=== PATIENT | female | born 1970 | race Caucasian/White ===

== ENCOUNTER → 2017-04-16 | Outpatient (CLI) | payer OTHER ==
[~2017-04-16] MED LIST: ASPIRIN ENTERI325 M1 PO; ATIVAN0.5 M1 PO; BACTRIM 400-801 TA1 PO; BUSPAR PO; BUSPAR30 MG PO; COMPAZINE10 M1 PO; COMPAZINE10 MG PO; CYANOCOBAL1000 MCG/M IM; CYMBALTA PO; CYMBALTA30 MG PO; DESYREL300 MG PO; DIAZEPAM PO; DICLOFENAC PO; DOCU SOFT100 M1 PO; DULOXETINE HCL60 MG PO; FENTANYL1 EAC3 TD; FIORINAL 50-321 EACH PO; FLAGYL PO; FLEXERIL10 MG PO; GABAPENTIN800 MG PO; HYDROCODON-ACE1 EAC7 PO; HYDROXYZINE HCL50 MG PO; IMITREX PO; IRON325 ( 652 PO; KLONOPIN1 MG PO; LIPITOR20 MG PO; LORTAB 10-3251 EACH PO; LORTAB 5/500 TA1 TA1 PO; LORTAB 7.5-5001 TAB PO; MOBIC PO; NEURONTIN800 MG PO; OXYCODONE HCL5 MG PO; PERCOCET10 PO; PHENERGAN PO; PRILOSEC PO; PROTONIX PO; TRAZODONE HCL100 MG PO; TRAZODONE HCL150 MG PO; TRAZODONE HCL300 MG PO; TRAZODONE PO; ULTRAM; ULTRAM PO; ZOFRAN ODT4 MG PO; ZOFRAN PO
--- NOTE | ~2017-04-16 | MR113 ---
[facility] A Service of [facility] RADIOLOGY TEXT RESULTS PATIENT: ÁGNEL HICKMAN LOCATION: [facility] : 74 UNIT #: [id number] AGE: [address]: Alton Dotson MD SEX: F ORDER DR: [id number] [facility] [address] [place], [place] [address] [id number] MR#: [id number] Acc #: [id number] NAME: ÁNGEL HICKMAN : 1970 SEX: F STUDY DATE/TIME: 04/16/2017 16:59 UNIT: CMRI ROOM: STUDY DESCRIPTION: MR Lumbar Wo Contrast Attending Physician: Alton Dotson M.D. Referring Physician: Alton Dotson M.D. Ordering Physician: Alton Dotson M.D. Primary Care Physician: Marylou Lewis M.D. MRI CENTER REPORT This report is preliminary unless electronic signature is present. EXAM Lumbar spine MRI. HISTORY Low back pain that radiates to the right leg for the past 5 years. Lumbar surgery 6 weeks ago. Right leg pain has worsened since surgery, accompanied by right leg numbness. TECHNIQUE Multiplanar imaging of the lumbar spine was performed and compared to a previous scan from 10/24/16. FINDINGS The upper 4 lumbar discs are unremarkable and unchanged from the preoperative examination. There is no evidence of new disc herniation or exiting nerve root compression. Postoperative changes of fusion are seen across L5-S1. Expected postoperative granulation tissue is seen at the operative site. No postoperative fluid collections are noted. The spinal canal and foramina at L5-S1 appear to be patent. There is no evidence of epidural hematoma. The conus is normal. Nerve roots of the cauda quinine have a normal branching pattern. No paraspinous masses are seen. IMPRESSION Satisfactory postop appearance across an L5-S1 fusion. No postoperative complications are seen. Dictated by... Woo Kurtz M.D. THIS IS AN ELECTRONICALLY VERIFIED REPORT [facility] A Service of [facility] RADIOLOGY TEXT RESULTS PATIENT: ÁNGEL HICKMAN [facility] : 72 UNIT #: [id number] AGE: [address]: Alton Dotson MD SEX: F ORDER DR: Woo Kurtz M.D. at 04/17/2017 6:27 PM OSVALDO/jono TD: 04/17/2017 15:25 JOB #: [id number] MRI CENTER REPORT Page 1 of 1 COPY
== END | disposition home or self-care (01) ==
LOC: CMRI 16:36
DX: G89.18 Other acute postprocedural pain (principal); Z98.1 Arthrodesis status
CPT/HCPCS: 72148

== ENCOUNTER 2017-07-21 21:57 | Observation (INO) | payer OTHER ==
[~2017-07-21] VITALS: Ht 165.1 cm; Wt 90.7 kg
--- NOTE | ~2017-07-21 | DS ---
Unit #: [id number] #: [id number] Patient: ÁNGEL HICKMAN [id number] [address] [place], [place] [address] [id number] I MR#: [id number] NAME: ÁNGEL HICKMAN. ROOM: 217 Age: 47 Sex: F Admission Date: 07/22/2017 : 1970 Discharge Date: 07/23/2017 Attending Physician: Raquel Garcia M.D. Primary Care Physician: Marylou Lewis M.D. DISCHARGE SUMMARY REASON FOR ADMISSION Left flank/left-sided abdominal pain. HISTORY OF PRESENT ILLNESS/HOSPITAL COURSE The patient is a very pleasant 47-year-old female, with a long history of chronic back pain, depression, generalized anxiety disorder, presented secondary to left lower quadrant discomfort and/or pain. Please refer to history and physical for complete details. She underwent a CT of the abdomen and pelvis without contrast on July 22, 2017 which was unremarkable. Initial blood work including urinalysis was negative. CBC showed a white count of 9.2, hemoglobin 13.8. Secondary to increased discomfort, consultation was placed to [facility] for evaluation. The patient underwent upper and lower endoscopy by Dr. Carbajal. Preliminary results are negative within normal range. There were no acute findings which were noted. From their standpoint, the patient was clear to discharged home. The patient will be discharged with the understanding that she will follow up with her primary care physician within 7 to 10 days, seems likely that she has some level of irritable bowel syndrome secondary to underlying generalized anxiety and/or psychiatric illness. Recommendation has been made for outpatient GI evaluation and/or consideration made to psychiatric referral as an outpatient. Plans have been reviewed in detail. She will followup with primary care physician in 7 days. FINAL DISCHARGE DIAGNOSES 1. Left-sided abdominal pain, negative workup. 2. History of major depressive disorder. 3. Generalized anxiety disorder. 4. Chronic low back pain, status post fusion February 2017. 5. Obesity. FINAL DISCHARGE MEDICATIONS 1. Neurontin 800 mg p.o. q.6 2. Cymbalta 120 mg p.o. q.h.s. 3. Trazodone 300 mg p.o. q.h.s. 4. Imitrex 100 mg p.o. daily p.r.n. migraine 5. Percocet 10/325 one tablet p.o. q.8 p.r.n. 6. Omeprazole 20 mg p.o. daily 7. Flexeril 10 mg p.o. q.8 p.r.n. 8. Vitamin B12 IM injections monthly Unit #: [id number] #: [id number] Patient: ÁNGEL HICKMAN DISCHARGE CONDITION Stable. DISCHARGE DISPOSITION Home. Dictated by... Brittanie Winston/jose TD: 07/24/2017 06:05 JOB #: [id number] DISCHARGE SUMMARY Page 1 of 1 X Raquel Garcia MD X DISCHARGE SUMMARY
--- NOTE | ~2017-07-21 | OR ---
Unit #: [id number] #: [id number] Patient: ÁNGEL HICKMAN [id number] [address] [place], [place] [address] [id number] I MR#: [id number] NAME: ÁNGEL HICKMAN. ROOM: [facility] Date of Procedure: 07/23/2017 Admission Date: 07/22/2017 Surgeon: Kasi Carbajal M.D. : 1970 Attending Physician: Raquel Garcia M.D. Primary Care Physician: Marylou Lewis M.D. OPERATIVE REPORT JOB NOTE: VERIFY MRN NUMBER. PREOPERATIVE DIAGNOSES 1. Diarrhea. 2. Left-sided abdominal pain. 3. Dark stools. POSTOPERATIVE DIAGNOSES 1. Diarrhea. 2. Left-sided abdominal pain. 3. Dark stools. PROCEDURES PERFORMED 1. Esophagogastroduodenoscopy. 2. Biopsy of antrum for Helicobacter pylori testing. 3. Colonoscopy to cecum. ANESTHESIA Monitored anesthesia care. FINDINGS The patient was found on upper endoscopy to have retained food, otherwise normal upper endoscopy. The patient had normal colonoscopy to cecum. SPECIMENS Sent to pathology. COMPLICATIONS None apparent. CONDITION The patient tolerated the procedure well. INDICATIONS FOR PROCEDURE The patient is a 47-year-old female, who presents at this time with left-sided abdominal pain. Her CT scan of the abdomen and pelvis revealed no acute findings in the abdomen or pelvis. She presents at this time for upper and lower endoscopy. DESCRIPTION OF PROCEDURE After obtaining informed consent, the patient was brought to the endoscopy suite and after adequate monitored anesthesia care was obtained, had the Unit #: [id number] #: [id number] Patient: ÁNGEL HICKMAN endoscope placed through the mouth into the upper esophagus under direct vision. It was advanced to the second and third portion of the duodenum without difficulty with the lumen always in view. The duodenum was within normal limits as was the duodenal bulb. The pylorus opened normally. There was some very mild gastritis present distally in the antrum and a biopsy was obtained for Helicobacter pylori testing. On retroflexing back to the GE junction, the patient had a moderate amount of retained food in the stomach. No other abnormalities were found in the proximal third, middle third, or incisura. On pulling back above the GE junction, there was no stenosis, stricture, or neoplasm seen. There was no significant esophagitis. The remaining portion esophagus was within normal limits. Laryngeal structures were grossly normal as viewed from above. At this point in time, the colonoscope was placed through the anus and slowly advanced to the level of the cecum without difficulty with the lumen always in view. The cecum was normal as was the ileocecal valve. The ascending colon was normal as was the hepatic flexure, transverse colon, splenic flexure, descending colon, sigmoid colon, and rectum. No diverticula were seen. No inflammatory changes were seen. On retroflexing in the rectum to the anorectal junction, there was no abnormality seen. The scope was removed without difficulty. The patient tolerated the procedure well went from the endoscopy suite to recovery area in stable condition. RECOMMENDATIONS Resume preop orders and medications. Clear liquid diet, advance as tolerated. The patient may need a gastric emptying scan as an inpatient or outpatient per the hospitalist opinion. Dictated by... Brittanie Dominique/jerrica TD: 07/24/2017 03:35 JOB #: [id number] [facility] OPERATIVE REPORT Page 1 of 1 X Kasi Carbajal MD X PROCEDURE OPERATIVE NOTE
--- NOTE | ~2017-07-21 | CT4 ---
[facility] A Service of [facility] RADIOLOGY TEXT RESULTS PATIENT: ÁNGEL HICKMAN LOCATION: [place] [address] : 74 UNIT #: [id number] AGE: [address]: Raquel Garcia MD SEX: F ORDER DR: [id number] [facility] [address]. [place], [place] [address] [id number] I MR#: [id number] Acc #: [id number] NAME: ÁNGEL HICKMAN. : 1970 SEX: F STUDY DATE/TIME: 07/22/2017 0:57 UNIT: CEDOF ROOM: 68[address] STUDY DESCRIPTION: CT Abd and Pelv Wo Cont Attending Physician: Raquel Garcia M.D. Ordering Physician: Laci Bowen M.D. Primary Care Physician: Marylou Lewis M.D. MEDICAL IMAGING REPORT This report is preliminary unless electronic signature is present EXAM CT abdomen and pelvis without contrast HISTORY Left side abdomen pain for 1 day. Low back pain. Nausea and vomiting. FINDINGS CT abdomen and pelvis was performed without contrast. This CT exam was performed with one or more of the following radiation dose reduction techniques: Automatic exposure control, adjustment of mA and/or kV according to patient size, and iterative reconstruction. CT ABDOMEN: There is a 7 mm lipoma in the pancreatic tail. This is stable compared to CT 07/25/2015. Cholecystectomy. The liver, spleen, left kidney, and adrenal glands are normal. 5 mm stone in the lower pole of the right kidney. No perinephric stranding. No bowel dilatation. Normal caliber abdominal aorta. CT PELVIS: Appendectomy and hysterectomy. No free fluid. No inflammatory stranding. Urinary bladder is normal. Fusion across L5-S1. IMPRESSION 1. No acute findings in the abdomen or pelvis. 2. No urinary calculi or obstruction. 3. Cholecystectomy, appendectomy and hysterectomy. 4. Small nonobstructing stone in the lower-pole right kidney. 5. 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 Dictated by... Alfonzo Lopez M.D. [facility] A Service of [facility] RADIOLOGY TEXT RESULTS PATIENT: ÁNGEL HICKMAN LOCATION: [place] [address] : [birth year] UNIT #: [id number] AGE: [address]: Raquel Garcia MD SEX: F ORDER DR: THIS IS AN ELECTRONICALLY VERIFIED REPORT Alfonzo Lopez M.D. at 07/23/2017 4:16 AM DFL/chasidy TD: 07/22/2017 09:02 JOB #: [id number] MEDICAL IMAGING REPORT Page 1 of 1 COPY
--- NOTE | ~2017-07-21 | CO ---
Unit #: [id number] #: [id number] Patient: ÁNGEL HICKMAN [id number] [address] [place], [place] [address] [id number] I MR#: [id number] NAME: ÁNGEL HICKMAN. ROOM: 217 Age: 47 Sex: F Admission Date: 07/22/2017 : 1970 Attending Physician: Raquel Garcia M.D. Primary Care Physician: Marylou Lewis M.D. Consultation Date: 07/22/2017 CONSULTATION REPORT BRIEF HISTORY The patient is a 47-year-old lady with a 2-day history of left flank and left lower quadrant abdominal pain. Described as crampy radiating to her back. She has had some nausea, vomiting, or diarrhea. No blood per rectum. No hematemesis. No fevers or chills. No history of recent similar type pain. PAST MEDICAL HISTORY She has a history of cardiac dysfunction, congestive heart failure, hypertension, musculoskeletal difficulties, history of renal failure. PAST SURGICAL HISTORY She has had a hysterectomy, appendectomy, cholecystectomy, and biliary stent. HOME MEDICATIONS Cymbalta, Percocet, gabapentin. SOCIAL HISTORY Does drink routinely. No smoking. FAMILY HISTORY Negative for GI malignancy. REVIEW OF SYSTEMS No cardiopulmonary complaints at this time. Else, 10 systems reviewed negative physical. PHYSICAL EXAMINATION GENERAL: She is awake, alert, appropriate, currently afebrile. HEENT: Unremarkable. NECK: Supple. No JVD. Trachea midline. LUNGS: Clear to auscultation. Bilateral breath sounds symmetric. CARDIOVASCULAR: Regular rate and rhythm. ABDOMEN: Soft. It is mildly tender in the left lower quadrant. No rebound. No masses. No hernias. EXTREMITIES: No clubbing, cyanosis, or edema. DIAGNOSTIC STUDIES LABORATORY RESULTS: Show a normal white count. Chemistries are normal. CT scan is normal. ASSESSMENT Abdominal pain, possible diverticulitis versus colitis. Unit #: [id number] #: [id number] Patient: ÁNGEL HICKMAN PLAN Recommend IV fluids, antibiotics, bowel rest and would consider upper and lower endoscopy. Dictated by... Urban Melchor M.D. LUBA/jerrica TD: 07/22/2017 17:25 JOB #: [id number] CONSULTATION REPORT Page 1 of 1 X Urban Melchor MD CONSULTATION REPORT
--- NOTE | ~2017-07-21 | HP ---
Unit #: [id number] #: [id number] Patient: ÁNGEL HICKMAN [id number] [address] [place], [place] [address] [id number] I MR#: [id number] NAME: ÁNGEL HICKMAN. ROOM: 12434 Age: 47 Sex: F Admission Date: 07/22/2017 : 1970 Attending Physician: Christel Jha M.D. Primary Care Physician: Marylou Lewis M.D. HISTORY AND PHYSICAL CHIEF COMPLAINT Left flank/left sided abdominal pain. HISTORY This 47-year-old female with chronic low back pain, depression, is admitted for left sided abdominal pain. The patient states that she has had some recent non-bloody diarrhea. Two days ago, she began to experience left flank to left sided abdominal discomfort associated with nonbloody nausea and vomiting. Also noted fatigue. States that recently she noted a little bit of blood in her urine as well. She presented to this emergency department late last evening in quite a bit of discomfort. She was treated with Toradol, Zofran and ultimately given a milligram of Dilaudid for severe pain. Workup including urinalysis, CT scan and labs were fairly unremarkable. On examination, she does have left flank percussion tenderness, and tenderness when palpating left mid abdomen but also left upper quadrant and left lower quadrant. PAST MEDICAL HISTORY 1. Hyperlipidemia. 2. Anxiety, depression and insomnia. 3. Chronic back pain, status post lumbar fusion 02/2017. 4. Cardiac catheterization. 5. Right upper quadrant pain. 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 A stent was placed for about six weeks. She had a sphincterotomy done. She was noted to have moderate gastritis as well. 6. Previous colonoscopy with two ascending colon ulcers noted. 7. Cholecystectomy. 8. Bladder repair. 9. Hysterectomy and unilateral oophorectomy. 10. Lumbar fusion. ALLERGIES Latex. HOME MEDICATIONS 1. Cymbalta 120 mg q. h.s. 2. Trazodone 300 mg q. h.s. 3. Neurontin 800 mg q.i.d. 4. Percocet 10/325 t.i.d. as needed. 5. Flexeril 10 mg t.i.d. as needed. 6. Prilosec 20 mg daily. Unit #: [id number] #: [id number] Patient: ÁNGEL HICKMAN FAMILY HISTORY Alcohol-induced cirrhosis, CAD. SOCIAL HISTORY The patient lives with her . Stopped smoking about six months ago. Occasionally drinks alcohol. REVIEW OF SYSTEMS Notable for left back, left abdominal pain, nausea, vomiting recently, mild diarrhea, gastritis, hyperlipidemia, anxiety, depression, insomnia, chronic back pain, above mentioned surgeries, gastritis. All other systems were reviewed and otherwise negative. PHYSICAL EXAMINATION GENERAL: Pleasant, moderately obese 47-year-old female, currently in no acute distress. VITAL SIGNS: Temperature 97.8, pulse 86, respirations 15, blood pressure 125/83. O2 saturation is 100% on room air. HEENT: Eyes PERRLA. Extraocular muscles are intact. Pharynx is benign. NECK: Supple without adenopathy or thyromegaly. CHEST: Clear. BACK: With left percussion CVA tenderness. ABDOMEN: Bowel sounds are present. Patient is tender left side of the abdomen without rebound or definite guarding. No hepatosplenomegaly or masses. EXTREMITIES: Without C, C or E. Pedal pulses are present. NEUROLOGIC EXAM: Patient is awake, alert, oriented. Cranial nerves are intact. Equal strength throughout. DIAGNOSTIC STUDIES LABORATORY: Admission labs - hematocrit is 40.4. Normal white count, platelet count. SMA-12 - amylase and lipase are all normal. Urinalysis is negative. IMAGING: CT scan of the abdomen and pelvis - 7 mm lipoma in the pancreatic tail, nonobstructive right renal calculi. ASSESSMENT 1. Left flank/left sided abdominal pain with negative workup. Patient did make mention of some recent hematuria which I neglected to dictate in my H and P. However, urinalysis is negative, and there is no ureteral stone noted on CT scan. 2. Chronic low back pain, status post fusion 02/2017. 3. Depression/anxiety and insomnia. 4. History of gastritis. PLANS 1. IV fluids and supportive treatment. 2. Repeat urinalysis this morning and CBC this morning. 3. [facility] to see. 4. SCDs for DVT prophylaxis. 5. Stool cultures if diarrhea occurs. Unit #: [id number] #: [id number] Patient: ÁNGEL HICKMAN Dictated by Brittanie Ramirez/edward TD: 07/22/2017 05:52 JOB #: [id number] HISTORY AND PHYSICAL Page 1 of 1 X Christel Jha MD HISTORY AND PHYSICAL
[~2017-07-21 21:57] MED LIST changes: -CYANOCOBAL1000 MCG/M IM; -DULOXETINE HCL60 MG PO; -FLEXERIL10 MG PO; -GABAPENTIN800 MG PO; -IMITREX PO; -PERCOCET10 PO; -PRILOSEC PO
[2017-07-22 00:35] LABS: BASOPHIL# 0.1 X10e3 (0-0.3); BASOPHIL% 0.6 % (0-2.5); EOSINOPHIL# 0.3 X10e3 (0-0.7); EOSINOPHIL% 3.4 % (0.0-7.0); HEMATOCRIT 40.4 % (35.0-45.0); HEMOGLOBIN 13.8 gm/dL (12.0-16.0); LYMPHOCYTE# 3.5 X10e3 (1.0-3.5); LYMPHOCYTE% 38.2 % (17.0-45.0); MEAN CELL VOLUME 92.8 FL (83-96); MEAN CORPUSCULAR HEMOGLOBIN 31.8 PG (28-34); MEAN CORPUSCULAR HGB CONC 34.3 g/dL (30-36); MEAN PLATELET VOLUME 8.3 FL (6.5-11.5); MONOCYTE# 0.7 X10e3 (0-1.0); MONOCYTE% 7.7 % (3.0-12.0); NEUTROPHIL# 4.6 X10e3 (1.5-7.1); NEUTROPHIL% 50.1 % (40-75); PLATELET COUNT 240 X10e3 (140-420); RED BLOOD COUNT 4.35 X10e (3.90-5.30); RED CELL DISTRIBUTION WIDTH 13.5 % (11.0-15.5); WHITE BLOOD COUNT 9.2 X10e3 (4.0-10.5)
[2017-07-22 00:35] LABS: URINE SOURCE CLEAN CATCH
[2017-07-22 00:36] LABS: DIFF IND NO
[2017-07-22 00:40] LABS: URINE APPEARANCE CLEAR; URINE BILIRUBIN NEG (NEG); URINE BLOOD NEG (NEG); URINE COLOR YELLOW; URINE GLUCOSE NEG (NEG); URINE KETONE NEG (NEG); URINE LEUKOCYTE ESTERASE NEG (NEG); URINE NITRATE NEG (NEG); URINE PROTEIN NEG (NEG); URINE SPECIFIC GRAVITY 1.017 (1.003-1.035); URINE UROBILINOGEN 0.2 MG/DL (NEG)
[2017-07-22 00:42] LABS: CULTURE INDICATED? NO
[2017-07-22 01:01] LABS: ALBUMIN SERUM 4.3 g/dL (3.5-5.0); ALKALINE PHOSPHATASE 92 U/L (32-92); ALT (SGPT) 22 U/L (10-40); AMYLASE 26 U/L (0-46); AST (SGOT) 25 U/L (10-42); BILIRUBIN,TOTAL 0.5 mg/dL (0.2-2.0); BLOOD UREA NITROGEN 15 mg/dL (9-23); CALCIUM SERUM 9.7 mg/dL (8.4-10.2); CARBON DIOXIDE 23 mmol/L (22-31); CHLORIDE 104 mmol/L (100-111); GLUCOSE FASTING 89 mg/dL (70-110); LIPASE 29 U/L (22-51); PROTEIN TOTAL SERUM 7.7 g/dL (6.0-8.3); SODIUM 138 mmol/L (135-145)
[2017-07-22 01:29] LABS: BILIRUBIN, DIRECT <0.1 mg/dL (0.0-0.2); BILIRUBIN,INDIRECT 0.4 mg/dL (0.0-0.9)
[2017-07-22] MEDS ORDERED: DULOXETINE HCL60 MG PO (02:18)
[2017-07-22] MEDS ORDERED: DESYREL300 MG PO (02:19)
[2017-07-22] MEDS ORDERED: GABAPENTIN800 MG PO (02:20)
[2017-07-22] MEDS ORDERED: FLEXERIL10 MG PO (02:21)
[2017-07-22] MEDS ORDERED: PRILOSEC PO (02:21)
[2017-07-22] MEDS ORDERED: PERCOCET10 PO (02:21)
[2017-07-22 04:25] LABS: BASOPHIL% 0.5 % (0-2.5); EOSINOPHIL# 0.4 X10e3 (0-0.7); EOSINOPHIL% 3.9 % (0.0-7.0); HEMATOCRIT 39.7 % (35.0-45.0); HEMOGLOBIN 13.5 gm/dL (12.0-16.0); LYMPHOCYTE# 3.6 X10e3 (1.0-3.5); LYMPHOCYTE% 39.3 % (17.0-45.0); MEAN CORPUSCULAR HEMOGLOBIN 31.8 PG (28-34); MEAN CORPUSCULAR HGB CONC 33.9 g/dL (30-36); MEAN PLATELET VOLUME 8.3 FL (6.5-11.5); MONOCYTE# 0.8 X10e3 (0-1.0); MONOCYTE% 8.5 % (3.0-12.0); NEUTROPHIL# 4.3 X10e3 (1.5-7.1); NEUTROPHIL% 47.8 % (40-75); PLATELET COUNT 215 X10e3 (140-420); RED BLOOD COUNT 4.23 X10e (3.90-5.30); RED CELL DISTRIBUTION WIDTH 13.7 % (11.0-15.5); WHITE BLOOD COUNT 9.1 X10e3 (4.0-10.5)
[2017-07-22 04:26] LABS: DIFF IND NO
[2017-07-22] MEDS ORDERED: CYANOCOBAL1000 MCG/M IM (10:04)
[2017-07-22] MEDS ORDERED: IMITREX PO (10:05)
[2017-07-23 05:39] LABS: BASOPHIL# 0.1 X10e3 (0-0.3); BASOPHIL% 0.9 % (0-2.5); EOSINOPHIL# 0.3 X10e3 (0-0.7); EOSINOPHIL% 4.8 % (0.0-7.0); HEMATOCRIT 42.8 % (35.0-45.0); HEMOGLOBIN 14.2 gm/dL (12.0-16.0); LYMPHOCYTE# 2.3 X10e3 (1.0-3.5); LYMPHOCYTE% 40.1 % (17.0-45.0); MEAN CELL VOLUME 95.1 FL (83-96); MEAN CORPUSCULAR HEMOGLOBIN 31.4 PG (28-34); MEAN PLATELET VOLUME 8.8 FL (6.5-11.5); MONOCYTE# 0.5 X10e3 (0-1.0); MONOCYTE% 8.9 % (3.0-12.0); NEUTROPHIL# 2.6 X10e3 (1.5-7.1); NEUTROPHIL% 45.3 % (40-75); PLATELET COUNT 231 X10e3 (140-420); RED CELL DISTRIBUTION WIDTH 13.3 % (11.0-15.5); WHITE BLOOD COUNT 5.8 X10e3 (4.0-10.5)
[2017-07-23 06:05] LABS: BUN/CREATININE RATIO 11.11; CALCIUM SERUM 9.3 mg/dL (8.4-10.2); CREATININE SERUM 0.9 mg/dL (0.6-1.4); GLOM FILT RATE Estimated 77.3 mL/min (>60)
[2017-07-23 06:08] LABS: DIFF IND NO
== END 2017-07-23 18:23 | disposition home or self-care (01) ==
LOC: CED 21:57 → C2A 07-22 02:50 → CEDOF 07-22 02:50 → CED 07-22 02:58 → CEDOF 07-22 02:58 → C2A 07-22 20:16 → CEDOF 07-22 20:16 → C2A 07-22 20:16
PROVIDERS: Emergency Medicine; Internal Medicine
DX: R10.32 Left lower quadrant pain (principal); R19.7 Diarrhea, unspecified; G89.29 Other chronic pain; M54.5 Low back pain; E66.9 Obesity, unspecified; E78.5 Hyperlipidemia, unspecified; F41.1 Generalized anxiety disorder; F32.9 Major depressive disorder, single episode, unspecified; G47.00 Insomnia, unspecified; Z87.19 Personal history of other diseases of the digestive system; Z68.33 Body mass index [BMI] 33.0-33.9, adult; Z87.891 Personal history of nicotine dependence; Z91.040 Latex allergy status; Z79.899 Other long term (current) drug therapy; Z98.1 Arthrodesis status; Z90.49 Acquired absence of other specified parts of digestive tract; Z98.890 Other specified postprocedural states
CPT/HCPCS: 36415; 74176; 80048; 80076; 81003; 82150; 83690; 84703; 85025; 87077; 87086; 96374; 96375; 96376; 99284; G0378; J1170; J1885; J2250; J2405